=== PATIENT | male | born 1980 | race African-American/Black ===

== ENCOUNTER 2017-05-05 16:12 | Emergency (ER) | payer MEDICAID ==
[~2017-05-05] VITALS: Ht 188 cm; Wt 124.7 kg
[~2017-05-05 16:12] MED LIST: BENTYL10 MG ORAL; CILOXAN 0.3% O1 DROP RIGHT EYE; IBUPROFEN600 MG ORAL; METFORMIN HCL500 M1 ORAL; TESSALON PERLE100 M2 ORAL; ZITHROMAX250 MG ORAL; ZOFRAN ODT4 MG ORAL
[2017-05-05 16:28] VITALS: BP 130/76
[2017-05-05] MEDS ORDERED: Bacitracin Oint UD TOPIC ONE (16:30)
[2017-05-05] MEDS ORDERED: TESSALON PERLE100 MG ORAL (16:32)
[2017-05-05 16:47] VITALS: BP 130/76
--- NOTE | 2017-05-05 19:04 | Emergency Room Report ---
History of Present Illness General Chief Complaint: Skin Rash/Abscess Source: Patient Present Illness HPI 36-year-old male no significant past medical history presenting with pustule to right forearm as well as cough for one month. Patient states that he had a viral illness about 3 weeks ago, however states that he has still had a dry cough that has persisted. Denies any shortness of breath. Also noticed a pustule on his right forearm. No fever no chills no purulent drainage Allergies: Coded Allergies: No Known Allergies (Unverified , 11/25/14) Patient History Past Medical History: see triage record Past Surgical History: none Pertinent Family History: none Reviewed Nursing Documentation: PMH: Agreed, PSxH: Agreed Nursing Documentation-PMH Hx Diabetes: Yes - "borderline" Review of Systems All Other Systems: negative except mentioned in HPI Physical Exam Vital Signs Date Time Temp Pulse Resp B/P (MAP) Pulse Ox O2 Delivery O2 Flow Rate FiO2 05/05/17 16:15 97.5 86 20 130/76 99 Room Air Sp02 EP Interpretation: reviewed, normal General Appearance: normal inspection, well appearing, no apparent distress, alert, GCS 15, non-toxic Head: normocephalic, atraumatic Eyes: bilateral eye normal inspection, bilateral eye PERRL, bilateral eye EOMI ENT: normal ENT inspection, normal pharynx, normal voice, moist mucus membranes Neck: normal inspection, full range of motion, supple Respiratory: normal inspection, lungs clear, normal breath sounds, no respiratory distress, no retraction, no wheezing, speaking full sentences, chest symmetrical Cardiovascular #1: normal inspection, regular rate, rhythm, no edema, normal capillary refill Cardiovascular #2: 2+ radial (R), 2+ radial (L) Gastrointestinal: normal inspection, non tender, soft, non-distended, no guarding Genitourinary: no CVA tenderness Musculoskeletal: normal inspection, back normal, normal range of motion, non- tender Neurologic: normal inspection, alert, oriented x3, responsive, motor strength/ tone normal, sensory intact, normal gait, speech normal Psychiatric: normal inspection, judgement/insight normal, memory normal Skin: other - Right forearm with less than 1 cm pustule with blood inside, no purulent drainage. Procedures Incision and Drainage Incision and Drainage : Consent: Verbal Site: R forearm Blade Size: 18 gauge needle I & D Procedure: betadine prep, sterile drapes applied, sterile dressing applied Wound's Depth, Shape: superficial Patient Tolerated: Well Complications: None Medical Decision Making Diagnostic Impression: Primary Impression: Post-viral cough syndrome Additional Impression: Skin pustule ER Course 36-year-old male with right forearm pustule, cough for one month DDX: Partial does not appear infected Postviral cough at this time I am not concerned of pneumonia lungs are clear, patient not having any fever chills shortness of breath Plan: Incision and drainage with 18-gauge needle ER course: Patient has remained stable during ED stay. Pustule popped with 18-gauge needle, minimal bleeding, no purulent drainage, bacitracin and sterile dressing applied Disposition: Patient is to be discharged to home. Patient is instructed to follow up with their primary care doctor within 5 days. Strict return precautions discussed with patient such as fever, chills spread of her rash, redness, purulent drainage nausea, vomiting, which may indicate severe illness. Patient verbalizes understanding and agrees with plan. Please note that this Emergency Department Report was dictated using NextMediumprogram writer technology software, occasionally this can lead to erroneous entry secondary to interpretation by the dictation equipment Last Vital Signs Date Time Temp Pulse Resp B/P (MAP) Pulse Ox O2 Delivery O2 Flow Rate FiO2 05/05/17 16:47 97.5 80 20 130/76 99 Room Air Disposition: HOME, SELF-CARE Condition: Stable Scripts Benzonatate* (TESSALON PERLE*) 100 Mg Capsule 100 MG ORAL THREE TIMES A DAY for 7 Days, #21 PERLE 0 Refills Prov: José Miguel Ellis M.D. 05/05/17 Referrals: NOT CHOSEN [facility]/,REFERRING (PCP) Patient Instructions: Abscess, [id number], Cough, Adult José Miguel Ellis M.D. May 05, 2017 19:04
== END 2017-05-05 16:51 | disposition home or self-care (01) ==
LOC: EMR 16:40
DX: R05 Cough (principal); L08.9 Local infection of the skin and subcutaneous tissue, unspecified
CPT/HCPCS: 10060; 99283

== ENCOUNTER 2017-07-13 22:05 | Emergency (ER) | payer MEDICAID ==
[~2017-07-13] VITALS: Ht 188 cm; Wt 127.0 kg
[~2017-07-13 22:05] MED LIST changes: +TESSALON PERLE100 MG ORAL
[2017-07-13] MEDS ORDERED: KEFLEX500 MG ORAL (22:23)
[2017-07-13 22:26] VITALS: BP 128/74
--- NOTE | 2017-07-14 00:37 | Emergency Room Report ---
History of Present Illness General Chief Complaint: Eye Problems Source: Patient Present Illness HPI Patient is a 36-year-old male presented after increased left eye pain. The patient reported having increased left eye lid pain and swelling. He reported having gradual onset of symptoms the past 2-3 days. He denied any fever. He reported having slight visual changes. He denies any floaters and flashing lights. He reports being diabetic. Allergies: Coded Allergies: No Known Allergies (Unverified , 11/25/14) Patient History Past Medical History: DM Reviewed Nursing Documentation: PMH: Agreed, PSxH: Agreed Nursing Documentation-PMH Hx Diabetes: Yes - "borderline" Review of Systems All Other Systems: negative except mentioned in HPI Physical Exam Vital Signs Date Time Temp Pulse Resp B/P (MAP) Pulse Ox O2 Delivery O2 Flow Rate FiO2 07/13/17 22:07 97.9 88 18 128/74 98 Room Air General Appearance: well appearing, no apparent distress, alert, GCS 15 Head: normocephalic, atraumatic Eyes: left eye PERRL, left eye lid inflammation ENT: hearing grossly normal, normal voice Neck: full range of motion, supple Respiratory: no respiratory distress, speaking full sentences Cardiovascular #1: normal inspection Gastrointestinal: normal inspection Musculoskeletal: normal inspection, back normal, digits/nails normal, no calf tenderness Neurologic: normal gait Psychiatric: mood/affect normal Skin: no rash Medical Decision Making Diagnostic Impression: Primary Impression: Stye external ER Course This presented for left eye pain. Differential diagnosis included was not limited to orbital cellulitis, glaucoma, among others. Patient has a benign exam and does not appear to require any further imaging or laboratory testing at this time. The patient given prescription for antibiotics. Is advised warm compresses. He is advised followup with primary care physician for recheck. Is advised to continue to monitor his blood sugars.The patient is advised to follow up with primary care doctor in 1-2 days. Patient is advised to return if any worsening condition or if any changes in status that are concerning. This report is dictated with Drizly whiskey filterer software which may occasionally lead to discrepancies related to use of this software. Last Vital Signs Date Time Temp Pulse Resp B/P (MAP) Pulse Ox O2 Delivery O2 Flow Rate FiO2 07/13/17 22:26 97.9 88 18 128/74 98 Room Air Status: improved Disposition: HOME, SELF-CARE Condition: Stable Scripts Cephalexin* (KEFLEX*) 500 Mg Capsule 500 MG ORAL Q6H, #28 CAP 0 Refills Prov: Manpreet Barrera 07/13/17 Patient Instructions: Manpreet Hatch Jul 14, 2017 00:37
== END 2017-07-13 22:26 | disposition home or self-care (01) ==
LOC: EMR 22:19
DX: H00.026 Hordeolum internum left eye, unspecified eyelid (principal); E11.9 Type 2 diabetes mellitus without complications
CPT/HCPCS: 99283

== ENCOUNTER 2017-10-19 19:15 | Emergency (ER) | payer MEDICAID, OTHER ==
[~2017-10-19] VITALS: Ht 188 cm; Wt 127.0 kg
[~2017-10-19 19:15] MED LIST changes: +KEFLEX500 MG ORAL
[2017-10-19 19:25] VITALS: BP 131/78
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
[2017-10-19] MEDS ORDERED: Methocarbamol 500mg tab ORAL ONE (19:45)
[2017-10-19] MEDS ORDERED: ACETAMINOPHEN-1 EAC1 ORAL (20:50)
[2017-10-19] MEDS ORDERED: LIDOCAINE700 M1 TP (20:50)
[2017-10-19] MEDS ORDERED: ROBAXIN500 MG PO (20:50)
[2017-10-19 21:06] VITALS: BP 121/85
--- NOTE | 2017-10-20 10:21 | Diagnostic Imaging Report ---
Indication: Back pain Comparison: None Findings: 3 views of the lumbar spine were obtained. The L4-5 disc is narrowed. There is sclerosis and hypertrophy of the lower lumbar facets, mild in degree. Alignment of the lumbar spine is normal. No fracture seen. IMPRESSION: Degenerative disc disease at L4-5. Facet arthropathy.
--- NOTE | 2017-10-20 10:23 | Diagnostic Imaging Report ---
Indication: Neck Pain Findings: 3 views of the cervical spine were obtained. Mild degenerative changes of the cervical spine are demonstrated characterized by vertebral endplate osteophyte formation and narrowing of intervertebral discs at C4-5 C5-6. There is no acute fracture identified. Alignment is normal. The open-mouth odontoid view shows an intact dens and good alignment of the lateral masses with respect to the body of C2. There is no soft tissue swelling. Impression: Mild spondylosis
== END 2017-10-19 21:06 | disposition home or self-care (01) ==
LOC: EMR 19:48
DX: M54.5 Low back pain (principal); M54.2 Cervicalgia; V43.62XA Car passenger injured in collision with other type car in traffic accident, initial encounter; Y92.410 Unspecified street and highway as the place of occurrence of the external cause; M51.36 Other intervertebral disc degeneration, lumbar region; M47.812 Spondylosis without myelopathy or radiculopathy, cervical region; E11.9 Type 2 diabetes mellitus without complications
CPT/HCPCS: 72020; 72040; 99284

== ENCOUNTER 2018-11-02 14:01 | Emergency (ER) | payer OTHER ==
[~2018-11-02] VITALS: Ht 188 cm; Wt 127.9 kg
[~2018-11-02 14:01] MED LIST changes: +ACETAMINOPHEN-1 EAC1 ORAL; +LIDOCAINE700 M1 TP; +ROBAXIN500 MG PO
[2018-11-02 14:20] VITALS: BP 132/93
--- NOTE | 2018-11-02 14:20 | NUR ---
ED Nurse Note: PT C/O PULLED MUSCLE IN BACK LAST THURSDAY . C/O BACK PAIN, NO TRAUMA, PT STATED IT IS RECCURING WHEN HE GAINS SOME WEIGHT. GI ISSUES GAS BURNING AND COUGH . SEEN BY BERT CORRAL. WILL CONTINUE TO MONITOR.
--- NOTE | 2018-11-02 15:06 | Emergency Room Report ---
History of Present Illness General Chief Complaint: Back Pain-No Injury Source: Patient Present Illness HPI 37 YO Male presents to the ED c/o 03/01 in severity Left sided low back pain described as "soreness, and tightness" . He reports chronic intermittent back issues s/p injury several years ago. pt. reports he only has symptoms on the left side, sharp exacerbations with twisting the trunk or bending over to a certain point. Denies sciatica, recent spinal procedures or hx of cancer. denies trauma or fall. and chronic cough worse at night with sore throat. hx of GERD, not taking medications. He denies abdominal tenderness denies nausea, vomiting, fevers or chills. Denies numbness tingling or loss of sensation or gross motor movements of the extremities, incontinence of bowel or bladder. Denies CP, Palpitations, LOC, AMS, dizziness, Changes in Vision, weakness or a sudden severe headache. Allergies: Coded Allergies: No Known Allergies (Unverified , 11/25/14) Patient History Past Medical History: see triage record, GERD Past Surgical History: none Pertinent Family History: none Reviewed Nursing Documentation: PMH: Agreed; PSxH: Agreed Nursing Documentation-PMH Past Medical History: No History, Except For Hx Diabetes: Yes Review of Systems All Other Systems: negative except mentioned in HPI Physical Exam Vital Signs Date Time Temp Pulse Resp B/P (MAP) Pulse Ox O2 Delivery O2 Flow Rate FiO2 11/02/18 14:09 97.9 92 18 94 Room Air 11/02/18 14:20 132/93 Sp02 EP Interpretation: reviewed, normal General Appearance: no apparent distress, alert, GCS 15, non-toxic Head: normocephalic, atraumatic Eyes: bilateral eye normal inspection, bilateral eye PERRL ENT: hearing grossly normal, normal voice Neck: full range of motion Respiratory: chest non-tender, lungs clear, normal breath sounds, no respiratory distress, no accessory muscle use, no wheezing, speaking full sentences Cardiovascular #1: regular rate, rhythm Gastrointestinal: normal bowel sounds, non tender, soft, non-distended, no guarding Musculoskeletal: back normal, gait/station normal, normal range of motion, tender - Left sided low back pain in the paraspinal musculature, no midline ttp , no spinous process ttp, no obvious deformities. Neurologic: alert, oriented x3, responsive, motor strength/tone normal, sensory intact, normal gait, speech normal, grossly normal Psychiatric: judgement/insight normal Skin: normal color, no rash, warm/dry, well hydrated Medical Decision Making PA Attestation Dr. Ellis is my supervising Physician whom patient management has been discussed with. Diagnostic Impression: Primary Impression: Strain of muscle, fascia and tendon of lower back, initial encounter Additional Impressions: Back muscle spasm GERD (gastroesophageal reflux disease) Qualified Codes: K21.0 - Gastro-esophageal reflux disease with esophagitis ER Course 37 YO Male presents to the ED c/o 03/01 in severity Left sided low back pain described as "soreness, and tightness" . He reports chronic intermittent back issues s/p injury several years ago. pt. reports he only has symptoms on the left side, sharp exacerbations with twisting the trunk or bending over to a certain point. Denies sciatica, recent spinal procedures or hx of cancer. denies trauma or fall. and chronic cough worse at night with sore throat. hx of GERD, not taking medications. He denies abdominal tenderness denies nausea, vomiting, fevers or chills. Denies numbness tingling or loss of sensation or gross motor movements of the extremities, incontinence of bowel or bladder. Denies CP, Palpitations, LOC, AMS, dizziness, Changes in Vision, weakness or a sudden severe headache. Ddx considered but are not limited to Fracture, dislocation, contusion, epidural abscess, Sprain/Strain/Spasm Vital signs: are WNL, pt. is afebrile H&PE are most consistent with muscle spasm, and chronic cough secondary to poorly controlled GERD. ORDERS: none required at this time. ED INTERVENTIONS: -Soma PO -Lidoderm TP -I do not identify an emergent condition at this time. With current presentation , pt. is stable for close outpatient follow up and conservative treatment. D/ w pt. to return promptly to ED with worsening or new symptoms.- Pt. verbalizes' understanding and agreement with proposed treatment plan. DISCHARGE: At this time pt. is stable for d/c to home. Will provide printed patient care instructions, and any necessary prescriptions. Care plan and follow up instructions have been discussed with the patient prior to discharge. Last Vital Signs Date Time Temp Pulse Resp B/P (MAP) Pulse Ox O2 Delivery O2 Flow Rate FiO2 11/02/18 14:20 97.9 78 18 132/93 94 Room Air Status: improved Disposition: HOME, SELF-CARE Condition: Stable Scripts Ranitidine Hcl* (ZANTAC*) 150 Mg Tablet 150 MG ORAL TWICE A DAY for 10 Days, #40 TAB Prov: Kristin Wray 11/02/18 Omeprazole (OMEPRAZOLE) 40 Mg Capsule.dr 40 MG ORAL DAILY for 10 Days, #10 CAP Prov: Kristin Wray 11/02/18 Lidocaine (Lidoderm) 1 Each Adh..patch 1 PATCH TOPIC DAILY, #30 PATCH 0 Refills Patch(es) may remain in place for up to 12 hours in any 24-hour period. Prov: Kristin Wray 11/02/18 Methocarbamol* (ROBAXIN-750*) 750 Mg Tablet 750 MG PO QID, #28 TAB 0 Refills Prov: Kristin Wray 11/02/18 Referrals: [facility],REFERRING (PCP) Departure Forms: Return to Work Return to Work Date: November 05, 2018 Work Restrictions: No Heavy Lifting Other Restrictions: light duty, proper ergonomics.May return Sooner if Symptoms have resolved. Return to Full Activity: November 09, 2018 Patient Instructions: Back Pain, Adult, Food Choices for Gastroesophageal Reflux Disease, Adult, [id number] Additional Instructions: Take medications as directed. Follow up with a Primary Care Provider in 3-5 days, even if your symptoms have resolved. --Please review list of primary care clinics, if you do not already have a primary care provider Return sooner to ED if new symptoms occur, or current symptoms become worse. Do not drink alcohol, drive, or operate heavy machinery while taking Robaxin ( Muscle Relaxers) as this may cause drowsiness. - Please note that this Emergency Department Report was dictated using EDMdesignerbuilding certifier technology software, occasionally this can lead to erroneous entry secondary to interpretation by the dictation equipment. Kristin Wray November 02, 2018 15:06
[2018-11-02] MEDS ORDERED: ROBAXIN-750750 MG PO (15:08)
[2018-11-02] MEDS ORDERED: OMEPRAZOLE40 M1 ORAL (15:08)
[2018-11-02] MEDS ORDERED: LIDODERM700 M1 TOPIC (15:08)
[2018-11-02] MEDS ORDERED: ZANTAC150 MG ORAL (15:08)
[2018-11-02 15:15] VITALS: BP 132/93
--- NOTE | 2018-11-02 15:15 | NUR ---
ER DISCHARGE NOTE: Patient is cleared to be discharged per ERMD, pt is aox4, on room air, with stable vital signs. pt was given dc and prescription instructions, pt was able to verbalize understanding, pt id band removed without complications. pt is able to ambulate with steady gait. pt took all belongings.
== END 2018-11-02 15:15 | disposition home or self-care (01) ==
LOC: EMR 14:35
DX: S39.012A Strain of muscle, fascia and tendon of lower back, initial encounter (principal); M62.830 Muscle spasm of back; E11.9 Type 2 diabetes mellitus without complications; K21.0 Gastro-esophageal reflux disease with esophagitis; X58.XXXA Exposure to other specified factors, initial encounter; Y92.9 Unspecified place or not applicable
CPT/HCPCS: 99282

== ENCOUNTER 2018-12-20 12:09 | Emergency (ER) | payer OTHER ==
[~2018-12-20] VITALS: Ht 188 cm; Wt 122.5 kg
[~2018-12-20 12:09] MED LIST changes: +LIDODERM700 M1 TOPIC; +OMEPRAZOLE40 M1 ORAL; +ROBAXIN-750750 MG PO; +ZANTAC150 MG ORAL
--- NOTE | 2018-12-20 12:16 | NUR ---
ED Nurse Note: PT CALLED BUT NOT IN WAITING ROOM.
--- NOTE | 2018-12-20 12:23 | NUR ---
ED Nurse Note: PT CALLED AGAIN BUT STILL NOT IN WAITING ROOM.
--- NOTE | 2018-12-20 12:37 | NUR ---
ED Nurse Note: PT CALLED AGAIN BUT STILL NOT IN WAITING AREA.
--- NOTE | 2018-12-20 13:14 | Emergency Room Report ---
History of Present Illness General Chief Complaint: Toothache Source: Patient Present Illness HPI 38-year-old male with no significant past medical history here complaining of pain in the right posterior molar tooth pain cracked x1 week. Patient has not contacted her dentist and is requesting free dental clinics as he has no insurance. Patient has taken ibuprofen 800 for pain is requesting something stronger. However patient leaves in for pain triaged to grab food. Patient comfortably all kinds of pain pressure. Rating his pain 5 out of 10 with radiation of his nail. Chills, shortness of, palpitation, nausea vomiting and all other associated symptoms. Denies facial trauma. Allergies: Coded Allergies: No Known Allergies (Unverified , 11/25/14) Patient History Past Medical History: see triage record Past Surgical History: unable to obtain Pertinent Family History: none Immunizations: UTD Reviewed Nursing Documentation: PMH: Agreed; PSxH: Agreed Nursing Documentation-PMH Hx Diabetes: Yes Review of Systems All Other Systems: negative except mentioned in HPI Physical Exam Vital Signs Date Time Temp Pulse Resp B/P (MAP) Pulse Ox O2 Delivery O2 Flow Rate FiO2 12/20/18 12:56 98.4 88 18 121/84 (96) 98 Room Air Sp02 EP Interpretation: reviewed, normal General Appearance: normal inspection, well appearing, no apparent distress, alert Head: normocephalic, atraumatic Eyes: bilateral eye normal inspection, bilateral eye PERRL ENT: normal pharynx, normal voice, other - Infected tooth Neck: normal inspection, full range of motion, supple Respiratory: normal inspection, chest non-tender, lungs clear, no rhonchi, no wheezing Cardiovascular #1: normal inspection, normal peripheral pulses, regular rate, rhythm, no murmur, no rub Gastrointestinal: normal inspection, non tender, soft Rectal: deferred Genitourinary: no CVA tenderness Musculoskeletal: normal inspection, back normal, digits/nails normal Neurologic: normal inspection, alert, oriented x3, responsive Psychiatric: normal inspection, judgement/insight normal Skin: no rash, palpation normal Lymphatic: normal inspection, no adenopathy Medical Decision Making PA Attestation All my diagnosis and treatment plans were reviewed ad discussed with my supervising physician Dr. Benítez Diagnostic Impression: Primary Impression: Tooth infection ER Course 38-year-old male with no significant past medical history here complaining of pain in the right posterior molar tooth pain cracked x1 week. Patient has not contacted her dentist and is requesting free dental clinics as he has no insurance. Patient has taken ibuprofen 800 for pain is requesting something stronger. However patient leaves in for pain triaged to grab food. Patient comfortably all kinds of pain pressure. Rating his pain 5 out of 10 with radiation of his nail. Chills, shortness of, palpitation, nausea vomiting and all other associated symptoms. Denies facial trauma. Ddx considered but are not limited to: strep pharyngitis, URI, tonsilitis, peritonsillar absacess, influneza, peritonsillar abscess, tooth infection Vital signs: are WNL, pt. is afebrile H&PE are most consistent with: Tooth infection ORDERS: Augmentin, naproxen ED INTERVENTIONS: None required at this time. DISCHARGE: At this time pt. is stable for d/c to home. Will provide printed patient care instructions, and any necessary prescriptions. Care plan and follow up instructions have been discussed with the patient prior to discharge. I gave patient a list of dental clinics dentist Last Vital Signs Date Time Temp Pulse Resp B/P (MAP) Pulse Ox O2 Delivery O2 Flow Rate FiO2 12/20/18 12:56 98.4 88 18 121/84 (96) 98 Room Air Disposition: HOME, SELF-CARE Condition: Stable Scripts Naproxen* (NAPROXEN*) 500 Mg Tablet 500 MG ORAL TWICE A DAY, #30 TAB Prov: James Harris 12/20/18 Amoxicillin* (AMOXIL*) 500 Mg Capsule 500 MG ORAL EVERY 8 HOURS for 10 Days, #30 CAP Prov: James Harris 12/20/18 Patient Instructions: Dental Pain Additional Instructions: Take medication as directed follow-up with your dentist at this point you need to see a dentist for further extraction or assessment of your tooth. James Harris Dec 20, 2018 13:13
[2018-12-20] MEDS ORDERED: NAPROXEN500 M2 ORAL (13:15)
[2018-12-20] MEDS ORDERED: AMOXICILLIN500 MG ORAL (13:15)
--- NOTE | 2018-12-20 13:30 | NUR ---
ER DISCHARGE NOTE: Patient is cleared to be discharged per ERMD, pt is aox4, on room air, with stable vital signs. pt was given dc and prescription instructions, pt was able to verbalize understanding, pt is able to ambulate with steady gait. pt took all belongings.
[2018-12-20 14:15] VITALS: BP 121/84
== END 2018-12-20 13:30 | disposition home or self-care (01) ==
LOC: EMR 13:11
DX: K04.7 Periapical abscess without sinus (principal); E11.9 Type 2 diabetes mellitus without complications
CPT/HCPCS: 99282

== ENCOUNTER 2020-09-14 17:22 | Emergency (ER) | payer SELFPAY ==
[~2020-09-14] VITALS: Ht 188 cm; Wt 120.2 kg
[~2020-09-14 17:22] MED LIST changes: +AMOXICILLIN500 MG ORAL; +NAPROXEN500 M2 ORAL
[2020-09-14 17:37] VITALS: BP 123/86
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
[2020-09-14] MEDS ORDERED: LIDODERM700 M1 TOPIC (17:38)
[2020-09-14] MEDS ORDERED: ROBAXIN-750750 MG PO (17:38)
[2020-09-14] MEDS ORDERED: IBUPROFEN600 M1 ORAL (17:38)
[2020-09-14] MEDS ORDERED: TYLENOL EXTRA500 MG ORAL (17:38)
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
[2020-09-14 17:44] VITALS: BP 123/86
--- NOTE | 2020-09-14 17:45 | NUR ---
discharged home with instruction and rx follow up with pmd
== END 2020-09-14 17:50 | disposition home or self-care (01) ==
LOC: EMR 17:45
DX: S29.012A Strain of muscle and tendon of back wall of thorax, initial encounter (principal); E11.9 Type 2 diabetes mellitus without complications; V43.52XA Car driver injured in collision with other type car in traffic accident, initial encounter; Y93.9 Activity, unspecified; Y92.411 Interstate highway as the place of occurrence of the external cause
CPT/HCPCS: 99283